=== PATIENT | female | born 1980 | race Caucasian/White ===

== ENCOUNTER → 2020-06-27 | Outpatient (CLI) | payer OTHER ==
[~2020-06-27] MED LIST: AC500T PO; ACET-789 PO; ACHYD1T PO; BPR150TCR PO; CALC-760 PO; DCS100C PO; DOCU100C37 PO; ESCI10TA PO; FAMO20TA5 PO; FOLI0.4T2 PO; HYDR1TAB75 PO; IBP600T1 PO; IBP800T PO; IBUP-1780 PO; METH0.2T45 PO; OXYC-556 PO; PREN1TAB39 PO
--- NOTE | 2020-06-28 12:17 | Diagnostic Imaging Report ---
INDICATION: Routine screening. No prior mammograms are available for comparison. This a baseline study. 2-D and 3-D bilateral screening mammography was performed with CAD. Both breast are heterogeneously dense, limiting the sensitivity of mammography. No mass or malignant appearing microcalcifications are seen. Axillae are unremarkable. IMPRESSION: BI-RADS Category 1 No mammographic features suspicious for malignancy are identified. Dictated by: Dictated on workstation # [id number]
== END ==
LOC: RAD 15:45
PROVIDERS: ATTEND Obstetrics & Gynecology
DX: Z12.31 Encounter for screening mammogram for malignant neoplasm of breast (principal)
CPT/HCPCS: 77063; 77067

== ENCOUNTER → 2021-08-22 | Outpatient (CLI) | payer OTHER | LOC: LABNPT 14:56 | PROVIDERS: ATTEND Family Medicine | DX: Z53.9 Procedure and treatment not carried out, unspecified reason (principal) ==

== ENCOUNTER → 2022-02-02 | Outpatient (CLI) | payer OTHER ==
--- NOTE | 2022-02-02 17:50 | Diagnostic Imaging Report ---
INDICATION: anatomic survey. TECHNIQUE: Multiple real-time grayscale images were obtained over the gravid uterus. COMPARISON: None FINDINGS: There is a single live intrauterine gestation. The estimated gestational age based on today's biometric measurements is 20 weeks 1 day which corresponds to an estimated date of delivery of 06/21/2022. The estimated weight 326 g. cardiac motion is measured at 152 beats per minute. Patient is currently in a transverse lie. The placenta is at the fundus. There are no findings of previa or abruption. Amniotic fluid volume is normal. The visualized intracranial contents unremarkable. The cerebellum measures appropriate for gestational age. The spine appears intact. Four-chamber view of the heart is unremarkable. Stomach bubble is present. There are no findings of hydronephrosis. The bladder is unremarkable. There is normal cord insertion. There is a three-vessel cord. Four extremities are present. IMPRESSION: 1. Single live intrauterine gestation of 20 weeks 1 day gestational age. 2. Appropriate cardiac motion and amniotic fluid volume. 3. Unremarkable appearance of the placenta. 4. No anatomic abnormalities are demonstrated. Biometrical measurements are as follows: Biparietal 4.68 cm, age 20 weeks 2 days. Head circumference 17.77 cm, age 20 weeks 2 days. Abdominal circumference 15.14 cm, age 20 weeks 3 days. Femur length 3.07 cm, age 19 weeks 4 days. Sonographic estimate age: 20 weeks 1 days. Sonographic estimated date of delivery: 06/21/2022. Estimated Weight: 326 gm (+/- 48 gm). LMP percentile: >98%. heart rate: 152 beats per minute. number: 1 of 1. Dictated by: Dictated on workstation # [id number]
== END ==
LOC: RAD 12:00
PROVIDERS: ATTEND Obstetrics & Gynecology
DX: Z34.82 Encounter for supervision of other normal pregnancy, second trimester (principal); Z3A.20 20 weeks gestation of pregnancy
CPT/HCPCS: 76805

== ENCOUNTER → 2022-04-12 | Outpatient (CLI) | payer OTHER ==
--- NOTE | 2022-04-12 16:16 | Diagnostic Imaging Report ---
INDICATION: screening, growth, and placental placement. TECHNIQUE: Multiple Real-time grayscale images were obtained over the gravid uterus. COMPARISON: 02/02/2022. FINDINGS: There is a single live intrauterine gestation in cephalic presentation. The cervix is partially obscured by the head but appears to be about 3.3 cm in length. The placenta is anterior without evidence of previa seen. The heart rate measures 155 BPM. The amniotic fluid index measures 12.7 cm. Anatomic survey is not performed at this time. Biometrical measurements are as follows: Biparietal 7.50 cm, age 30 weeks 1 days. Head circumference 28.68 cm, age 31 weeks 4 days. Abdominal circumference 24.94 cm, age 29 weeks 2 days. Femur length 5.60 cm, age 29 weeks 4 days. Sonographic estimate age: 30 weeks 1 days. Sonographic estimated date of delivery: 06/20/2022. Estimated Weight: 1413 gm (+/- 207 gm). LMP percentile: 79%. heart rate: 155 beats per minute. number: 1 of 1. IMPRESSION: 1. Single live intrauterine gestation measuring at 30 weeks and 1 day which is within range of the clinical dates. 2. The placenta is anterior without evidence of previa. Dictated by: Dictated on workstation # [id number]
== END ==
LOC: RAD 13:58
PROVIDERS: ATTEND Obstetrics & Gynecology
DX: Z36.89 Encounter for other specified antenatal screening (principal); Z3A.30 30 weeks gestation of pregnancy
CPT/HCPCS: 76805

== ENCOUNTER 2022-05-21 05:36 | Outpatient (CLI) | payer OTHER ==
[~2022-05-21] VITALS: Ht 167.7 cm; Wt 83.6 kg
[2022-05-30] MEDS ORDERED: FAMO20TA3 PO (15:43)
[2022-05-30] MEDS ORDERED: FOLI0.8C PO (15:43)
[2022-05-30] MEDS ORDERED: ACET325T38 PO (15:43)
[2022-05-30] MEDS ORDERED: MV-M1TAB20 PO (15:43)
== END 2022-05-30 16:18 | disposition home or self-care (01) ==
LOC: PREOP 05:36
PROVIDERS: ATTEND Obstetrics & Gynecology
DX: Z01.818 Encounter for other preprocedural examination (principal)

== ENCOUNTER 2022-06-17 21:47 | Outpatient (CLI) | payer OTHER ==
[~2022-06-17] VITALS: Ht 167.7 cm; Wt 85.8 kg
[~2022-06-17 21:47] MED LIST changes: +ACET325T38 PO; +FAMO20TA3 PO; +FOLI0.8C PO; +MV-M1TAB20 PO
[2022-06-17 22:16] LABS: BILIRUBIN,URINE NEGATIVE (NEGATIVE); CLARITY,URINE CLEAR; COLOR,URINE YELLOW; GLUCOSE, URINE (UA) NEGATIVE (NEGATIVE); KETONES,URINE NEGATIVE (NEGATIVE); LEUKOCYTE ESTERASE ,URINE NEGATIVE (NEGATIVE); NITRITE,URINE NEGATIVE (NEGATIVE); PH,URINE 6.5 (5-9); PROTEIN,URINE NEGATIVE (NEGATIVE)
[2022-06-17 22:22] LABS: BACTERIA,URINE NEGATIVE /HPF
[2022-06-17 22:27] VITALS: BP 147/89
--- NOTE | 2022-06-18 08:28 | Physician Query-Final Dx ---
Clinic Account Progress/Dx Physician Query: Please give diagnosis Please include # weeks gestation Date of Service Jun 17, 2022 at 21:47 DEBBY,MarJun 18, 2022 08:28
== END 2022-06-17 22:52 | disposition home or self-care (01) ==
LOC: WSo 21:47 → LDRP 21:48 → WSo 22:52
PROVIDERS: ATTEND Obstetrics & Gynecology
DX: O42.92 Full-term premature rupture of membranes, unspecified as to length of time between rupture and onset of labor (principal); Z3A.37 37 weeks gestation of pregnancy
CPT/HCPCS: 81000; 99213

== ENCOUNTER 2022-06-18 00:08 | Inpatient (IN) | payer OTHER ==
[2022-06-18] VITALS (10 sets, daily range): BP systolic 118–188; BP diastolic 67–99
[~2022-06-18] VITALS: Ht 167.7 cm; Wt 85.8 kg
[2022-06-18] MEDS ORDERED: AZITHROMYCIN INJECTION 500 MG/5 ML VIAL ONE (00:33)
[2022-06-18] MEDS ORDERED: NS (IVPB) 250 ML ONE (00:33)
[2022-06-18] MEDS ORDERED: ceFAZolin INJECTION 2,000 MG ONE (00:33)
[2022-06-18] MEDS ORDERED: FAMOTIDINE 20MG/2ML IV (PEPCID) ONE (00:33)
[2022-06-18] MEDS ORDERED: METOCLOPRAMIDE INJ 10 MG/2 ML (REGLAN) ONE (00:33)
[2022-06-18] MEDS ORDERED: NS (IVPB) 50 ML ONE (00:33)
[2022-06-18] MEDS ORDERED: CITRIC ACID/SOB CIT (BICITRA) 30 ML UDC ONE (00:33)
[2022-06-18 00:41] LABS: BASOPHILS % (AUTO) 0 % (0-10); EOSINOPHILS # (AUTO) 0.1 10^3/uL (0.0-0.3); EOSINOPHILS % (AUTO) 1 % (0-10); HEMATOCRIT 30 % (35-52); HEMOGLOBIN 10.4 g/dL (11.5-16.0); LYMPHOCYTES # (AUTO) 1.9 10^3/uL (1.0-4.0); LYMPHOCYTES % (AUTO) 24 % (12-44); MEAN CORPUSCULAR HEMOGLOBIN 31 pg (25-34); MEAN CORPUSCULAR HGB CONC 34 g/dL (32-36); MEAN CORPUSCULAR VOLUME 92 fL (80-99); MONOCYTES # (AUTO) 0.7 10^3/uL (0.0-1.0); MONOCYTES % (AUTO) 8 % (0-12); NEUTROPHILS # (AUTO) 5.4 10^3/uL (1.8-7.8); NEUTROPHILS % (AUTO) 67 % (42-75); PLATELET COUNT 156 10^3/uL (130-400)
[2022-06-18] MEDS ORDERED: CATHETER FLUSH 10 ML SYR IV PRN (00:45)
[2022-06-18] MEDS ORDERED: CITRIC ACID/SOB CIT (BICITRA) 30 ML UDC PO ONE (00:45)
[2022-06-18] MEDS ORDERED: ceFAZolin INJECTION 2,000 MG in NS (IVPB) 50 ML IV ONE (00:45)
[2022-06-18] MEDS ORDERED: LACTATED RINGERS 1,000 ML IV PRN ×2 (00:45)
[2022-06-18] MEDS ORDERED: METOCLOPRAMIDE INJ 10 MG/2 ML (REGLAN) IV ONE (00:45)
[2022-06-18] MEDS ORDERED: FAMOTIDINE 20MG/2ML IV (PEPCID) IV ONE (00:45)
[2022-06-18] MEDS ORDERED: ONDANSETRON 4 MG/2 ML (SDV) Z0FRAN ONE (00:57)
[2022-06-18] MEDS ORDERED: fentaNYL INJ 100 MCG/2 ML AMP ONE (00:57)
[2022-06-18] MEDS ORDERED: METHYLERGONOVINE 0.2 MG/ML (METHERGINE) AMP ONE (01:27)
[2022-06-18] MEDS ORDERED: BUPIVACAINE 0.5% 30 ML (SENSORCAINE) VIAL ONE (01:49)
[2022-06-18] MEDS ORDERED: OXYTOCIN PRE-MIX DRIP 500 ML IV ONE ×2 (01:49→02:13)
[2022-06-18] MEDS: KETOROLAC 30 MG/ML VIAL IV SCH ×4 (02:00→20:08)
--- NOTE | 2022-06-18 02:10 | OB Triage Report ---
Standard Progress Note Progress Notes/Assess & Plan Date Seen by a Provider: Jun 17, 2022 Time Seen by a Provider: 22:30 Expected Date of Delivery: Jul 02, 2022 Gestational Age in Weeks: 37 Gestational Age in Days: 6 LMP/SENDY Comment: As above Progress/Assessment & Plan Patient presented evening of 06/17/22 with concerns for SROM, evaluation by RN negative for SROM, Cx 2 cm dilation per RN with patient having Category I FHR tracing, Reactive NST and mild contractions q4-7 minutes. Patient with 2 prior C-Sections but wants to go home. Given strict labor precautions to return for stronger contractions or uterine scar pain. VSS. Final Diagnosis 37 6/7 weeks Not in active labor CARLOS EDUARDO FERNANDEZ DO Jun 18, 2022 02:10
--- NOTE | 2022-06-18 02:15 | History & Physical-OB ---
OB - Chief Complaint & HPI Date/Time Date of Admission: Date of Admission: Jun 18, 2022 at 00:26 Date seen by a Provider: Jun 18, 2022 Time Seen by a Provider: 00:55 Chief Complaint/History OB-Reason for Admission/Chief: Onset of Labor Hx : 5 Hx Para: 3 Expected Date of Delivery: Jul 02, 2022 Gestational Age in Weeks: 37 Gestational Age in Days: 6 Indication for : desires repeat History of Labs PNC: UNCOMPLICATED PMH: NEG PSH: C/S X 2, D&C SHX: ALL NEG MEDS: PNV, FOLATE, OTC PEPCID NKDA LABS: MBT AB NEG VDRL NR HBSAG NR HIV NR GC/CT NEG X 2 RUBELLA IMMUNE TSH NORMAL HCV NR MSAFP/MULTIPLE MARKER NEG 1 HR GLUCOLA 114 Allergies and Home Medications Allergies Coded Allergies: No Known Drug Allergies (Unverified , 05/30/22) Patient Home Medication List Home Medication List Reviewed: Yes Acetaminophen (Tylenol) Unknown Strength Tablet, Unknown Dose PO, (Reported) Entered as Reported by: LAZ BENOIT on 05/30/221542 Famotidine (Acid Social Science Manager (FAMOTIDINE)) 20 Mg Tablet, 20 MG PO UD, (Reported) Entered as Reported by: LAZ BENOIT on 05/30/221542 Folic Acid (Folic Acid) Unknown Strength Capsule, Unknown Dose PO, (Reported) Entered as Reported by: LAZ BENOIT on 05/30/221542 Mv-Mn/Iron/FA/Herbal Cmplx#190 (Vitamin D3 Complete Caplet) 18 Mg Iron-800 Mcg- 150 Mg Tablet, 1 EACH PO, (Reported) Entered as Reported by: LAZ BENOIT on 05/30/221542 Vits W-Ca,Fe,Fa(<1MG) () 1 Each Tablet, 1 EACH PO HS, (Reported) Entered as Reported by: TRAVIS GARCIA on 12/18/10 1515 OB - History Hx of Present Care: Yes Obstetrical Complications: None Medical Complications: None Patient Past Medical History ABOVE Social History/Family History 2nd Hand Smoke Exposure: No Immunizations First/Initial COVID19 Vaccine: 02/2020 Second COVID19 Vaccination: 03/2020 OB - Admission Exam Physical Exam HEENT: Nasal Mucosa Normal Heart: Rhythm Normal Lungs: Clear Abdomen: Gravid Extremities: Normal Cervical Dilatation: 3cm Effacement: 100% Membranes: Intact Heart Rate: 130's Accelerations: Accelerations Present Decelerations: No Decelerations Short Term Variability: Present Residential Variability: Average (6-25) Contractions on Admission: < 5 Minutes Apart Intensity: Firm Labs Laboratory Tests Test 06/18/22 00:25 Range/Units White Blood Count 8.0 4.3-11.0 10^3/uL Red Blood Count 3.31 L 3.80-5.11 10^6/uL Hemoglobin 10.4 L 11.5-16.0 g/dL Hematocrit 30 L 35-52 % Mean Corpuscular Volume 92 80-99 fL Mean Corpuscular Hemoglobin 31 25-34 pg Mean Corpuscular Hemoglobin Concent 34 32-36 g/dL Red Cell Distribution Width 13.2 10.0-14.5 % Platelet Count 156 130-400 10^3/uL Mean Platelet Volume 11.0 9.0-12.2 fL Immature Granulocyte % (Auto) 1 % Neutrophils (%) (Auto) 67 42-75 % Lymphocytes (%) (Auto) 24 12-44 % Monocytes (%) (Auto) 8 0-12 % Eosinophils (%) (Auto) 1 0-10 % Basophils (%) (Auto) 0 0-10 % Neutrophils # (Auto) 5.4 1.8-7.8 10^3/uL Lymphocytes # (Auto) 1.9 1.0-4.0 10^3/uL Monocytes # (Auto) 0.7 0.0-1.0 10^3/uL Eosinophils # (Auto) 0.1 0.0-0.3 10^3/uL Basophils # (Auto) 0.0 0.0-0.1 10^3/uL Immature Granulocyte # (Auto) 0.0 0.0-0.1 10^3/uL OB - Assessment/Plan/Diagnosis Assessment Assessment: active labor, section Admission Dx TERM LABOR PRIOR X 2 REQUESTS REPEAT Admission Status: Inpatient Order (span 2 midnights) Reason for Inpatient Admission: TERM LABOR PRIOR X 2 REQUESTS REPEAT Plan Plan: Section Other Plan ABOVE CARLOS EDUARDO FERNANDEZ DO Jun 18, 2022 02:15
--- NOTE | 2022-06-18 02:33 | OB/GYN Operative Report ---
Operative Report Date of Procedure:Jun 18, 2022 Preoperative Diagnosis: 38 0/7 WEEKS, LABOR, PRIOR X 2, REQUESTS REPEAT Postoperative Diagnosis: SAME Name of the Procedure: Surgeon: Carlos Eduardo Ellsworth Band Saw Runner Surgeon: None Anesthesia: Spinal Indications for Procedure: As above Findings of the Procedure: Delivery productive of viable male infant born at 0133 hours with 8/9. OP presentation. Clear amniotic fluid, normal adnexa and normal cord and placenta, no pelvic adhesive disease Antibiotics: Ancef 2 gm IV, Zithromax 500 mg IV Specimens: None Complications: None Drains: Silva Crystalloid: 500 ML EBL: 300 ML Urine: 100 ML Condition: Stable Description: The patient was counseled and consented verbally and in writing for surgery. She was transferred to the OR and placed on the OR table in supine position with a right hip role. A spinal was performed in routine fashion. The patient underwent a betadine vaginal and a duraprep abdominal prep. She was draped in routine fashion. A surgical time out and skin test performed. A Pfannenstiel incision was made two finger widths above the pubic symphysis and above the level of her prior transverse skin incisions due to their close proximity to the pubic bone, as previously discussed and agreed by patient. Sharp dissection was carried down to the fascia, which was nicked on both sides of the midline. The fascial incision was extended laterally and upwards sharply. The fascia was taken upwards and downwards sharply. The peritoneal cavity was entered bluntly. A bladder blade inserted and a low transverse uterine incision was performed with the scalpel and extended laterally bluntly. The amniotic sac ruptured spontaneously with copious clear fluid noted. The head was delivered through the uterine incision along with the rest of the baby with minimal fundal pressure required. A footling cord was reduced. The cord was clamped x 2 after thirty seconds, and cut between the clamps, and the handed to the pediatric provider. IV Pitocin rapid infusion was started. The placenta delivered spontaneously. The uterine cavity was wiped with a moist laparotomy sponge. The uterine incision was closed with two layers of running 0-Vicryl. Three figure eight stitches of 0-Vicryl were required along the incision for hemostasis of small bleeding. The bladder flap was reapproximated with running 3-0 Monocryl. The uterus and adnexa were allowed to fall back into the pelvis. The anterior cul-de-sac was irrigated, suctioned, and dry along with the perito juan edges and muscle bellies. The fascia was closed with running 1 Vicryl. The subcutaneous fat was irrigated suctioned and noted to be dry. The skin was reapproximated with running subcuticular suture of 3-0 Monocryl followed by steri-strips and a sterile dressing. All sponge, needle, and instrument counts were correct. The patient was transferred to the recovery area in good con dition. Disposition: Dr. Pereira to assume care of patient in my absence starting at 0700 hours. CARLOS EDUARDO ELLSWORTH DO Jun 18, 2022 02:33
[2022-06-18] MEDS ORDERED: ONDANSETRON 4 MG/2 ML (SDV) Z0FRAN IV PRN (02:45)
[2022-06-18] MEDS ORDERED: METOCLOPRAMIDE INJ 10 MG/2 ML (REGLAN) IV PRN (02:45)
[2022-06-18] MEDS ORDERED: NALOXONE 0.4 MG/ML 1 ML (NARCAN) VIAL IV PRN ×3 (02:45→03:45)
[2022-06-18] MEDS ORDERED: diphenhydrAMINE 50 MG/ML INJ (BENADRYL) IV PRN (02:45)
[2022-06-18] MEDS ORDERED: TETANUS,DIPTH,PERTUSS P/F (BOOSTRIX) 0.5 ML VIAL IM SCH (03:45)
[2022-06-18] MEDS ORDERED: MEASLES,MUMPS,RUBELLA 1 EA INJ SC SCH (03:45)
[2022-06-18] MEDS ORDERED: ONDANSETRON 4 MG/2 ML (SDV) Z0FRAN IVP PRN (03:45)
[2022-06-18] MEDS ORDERED: D5 LR IV SOLUTION 1,000 ML IV SCH (03:45)
[2022-06-18] MEDS ORDERED: OXYTOCIN PRE-MIX DRIP 500 ML IV SCH (04:15)
[2022-06-18 05:44] LABS: BASOPHILS % (AUTO) 0 % (0-10); EOSINOPHILS % (AUTO) 0 % (0-10); HEMATOCRIT 28 % (35-52); HEMOGLOBIN 9.7 g/dL (11.5-16.0); LYMPHOCYTES # (AUTO) 0.8 10^3/uL (1.0-4.0); LYMPHOCYTES % (AUTO) 5 % (12-44); MEAN CORPUSCULAR HEMOGLOBIN 32 pg (25-34); MEAN CORPUSCULAR HGB CONC 35 g/dL (32-36); MEAN CORPUSCULAR VOLUME 91 fL (80-99); MEAN PLATELET VOLUME 11.3 fL (9.0-12.2); MONOCYTES # (AUTO) 0.5 10^3/uL (0.0-1.0); MONOCYTES % (AUTO) 3 % (0-12); NEUTROPHILS % (AUTO) 92 % (42-75); PLATELET COUNT 148 10^3/uL (130-400); WHITE BLOOD COUNT 17.5 10^3/uL (4.3-11.0)
[2022-06-18] MEDS ORDERED: CATHETER FLUSH 10 ML SYR IV SCH (06:00)
[2022-06-18] MEDS: ACETAMINOPHEN 500 MG TAB (TYLENOL) PO SCH ×3 (06:23→21:46)
[2022-06-18] MEDS: DOCUSATE SODIUM 100 MG (COLACE) CAP PO SCH ×2 (09:13→20:08)
[2022-06-19 00:15] VITALS: BP 120/61
[2022-06-19] MEDS: IBUPROFEN 600 MG (MOTRIN) TAB PO SCH ×3 (02:16→14:28)
[2022-06-19 05:25] VITALS: BP 134/78
[2022-06-19] MEDS: ACETAMINOPHEN 500 MG TAB (TYLENOL) PO SCH (05:28)
--- NOTE | 2022-06-19 07:28 | Postpartum Progress Note ---
Note Note Day # 1 Subjective: Patient is without complaints. Ambulating, voiding. Tolerating a regular diet without nausea or vomiting. Normal lochia. Pain is well controlled with oral pain medications. Objective: Physical Exam: General - Alert and oriented, no apparent distress Abdomen - Soft, appropriately tender to palpation, non-distended, fundus firm at umbilicus Extremities - no edema, negative Ezio's bilaterally Incision- c/d/i Assessment: POD 1 RLTCS Acute blood loss anemia Plan: Routine care. Encourage breast feeding. Encourage ambulation. Ferrous sulfate supplementation. Plan for discharge possibly today Vitals - Labs Vital Signs - I&O Vital Signs Date Time Temp Pulse Resp B/P (MAP) Pulse Ox O2 Delivery O2 Flow Rate FiO2 06/19/22 05:25 36.6 70 18 134/78 (96) 99 Room Air 06/19/22 00:15 36.7 66 18 120/61 (80) 98 Room Air 06/18/22 21:44 138/68 (91) 06/18/22 20:08 36.7 67 18 168/70 (102) 100 Room Air 06/18/22 14:24 36.9 64 18 160/72 (101) 100 Room Air 06/18/22 09:06 36.7 68 18 143/67 (92) 98 Room Air I & O 06/19/22 07:00 Intake Total 600 ml Output Total 1600 ml Balance -1000 ml RIGOBERTO MCRAE DO Jun 19, 2022 07:28
--- NOTE | 2022-06-19 07:29 | Discharge Inst-Women's Service ---
Discharge Inst-Women's Serv Depart Medication/Instructions New, Converted or Re-Newed RX: Transmitted to Pharmacy Problems Reviewed?: Yes Consults/Follow Up Additional Follow Up: Yes Activity Activity: Activity as Tolerated Driving Instructions: No Driving for 1 Week NO SMOKING: NO SMOKING Nothing Inside Vagina: No Douching, No [place], No Tampons Diet Discharge Diet: No Restrictions Symptoms to Report to : Bleeding Excessive, Pain Increased, Fever Over 101 Degrees F, Vaginal Bleeding Increase, Questions/Concerns For Any Problems or Questions: Contact Your Physician Skin/Wound Care Infection Signs and Symptoms: Increased Redness, Foul Odor of Wound, Increased Drainage, Skin Itchy or Has a Rash, Increased Swelling, Temperature Above 101 F Operative Area Clean and Dry: Keep Incision Clean/Dry Stitches/[place]/Dermabond: Dermabond, Care of Stitches Bathing Instructions: RIGOBERTO Dyson DO Jun 19, 2022 07:29
[2022-06-19] MEDS ORDERED: ACET-93 PO (07:30)
[2022-06-19] MEDS ORDERED: IBUP-844 PO (07:30)
[2022-06-19] MEDS ORDERED: OXC5T PO (07:30)
[2022-06-19] MEDS ORDERED: DOCU100C37 PO (07:30)
[2022-06-19] MEDS: DOCUSATE SODIUM 100 MG (COLACE) CAP PO SCH (08:06)
[2022-06-19 08:10] VITALS: BP 144/74
[2022-06-19] MEDS ORDERED: SIMETHICONE 40 MG/0.6 ML (MYLICON DROPS) 30 ML BTL PO PRN (10:15)
[2022-06-19] MEDS: SIMETHICONE 80 MG (MYLICON) CHEW PO PRN ×2 (10:48→14:28)
[2022-06-19 12:30] VITALS: BP 126/62
--- NOTE | 2022-06-19 14:38 | Anesthesia-Regional Post-Op ---
Regional Patient Condition Mental Status: Alert, Oriented x3 Circulation: Same as Pre-Op Headache: Absent Sensation: Full Recovery Motor Block: Absent Post Op Complications Complications None Follow Up Care/Instructions Patient Instructions None needed. Anesthesia/Patient Condition Patient is doing well, no complaints, stable vital signs, no apparent adverse anesthesia problems. No complications reported per nursing. JOE STEINER CRNA Jun 19, 2022 14:38
[2022-06-19 15:30] VITALS: BP 126/62
== END 2022-06-19 15:30 | disposition home or self-care (01) | DRG 787 ==
LOC: LDRP 00:08 → WSo 00:08 → LDRP 00:26
PROVIDERS: ADMIT Obstetrics & Gynecology; ATTEND Obstetrics & Gynecology
PROC: 10D00Z1 Extraction of Products of Conception, Low, Open Approach (ICD-10-PCS; principal; 2022-06-18 01:06)
DX: O34.211 Maternal care for low transverse scar from previous cesarean delivery (principal); D62 Acute posthemorrhagic anemia; O90.81 Anemia of the puerperium; Z3A.38 38 weeks gestation of pregnancy; Z37.0 Single live birth
CPT/HCPCS: 36415; 83033; 85025; 86850; 86900; 86901; 99212